=== PATIENT | female | born 1950 | race Caucasian/White ===

== ENCOUNTER 2016-05-22 22:59 | Emergency (ER) | payer MEDICARE, OTHER ==
[~2016-05-22] VITALS: Ht 176.5 cm; Wt 104.4 kg
[~2016-05-22 22:59] MED LIST: ALLO300T2 PO; APIX5TAB PO; ASPI-1085 PO; GLYB5TAB8 PO; IRBE75TA10 PO; METO-277 PO; ONDA-56 PO; OXYC-532 PO; OXYC10TA57 PO; ZOLP10TA6 PO
--- OUTSIDE RECORDS SUMMARY | 2016-05-22 23:04 | XMS REPORT | Continuity of Care Document ---
Author Author [facility] Organization [facility] Address Unknown Phone Unavailable Support Name Relationship Address Phone DARIA GARRISON Caregiver [address] [place] [address] Unavailable REBEKAH ESCOBEDOBrad Dutton DO Caregiver [address] [place] [address] Unavailable GENNA MALLORY Next Of Kin [address] [place] [address] Insurance Providers Guarantor Vidhi Mallory Address [address] [place] [address] Email DENIED/NO TO PT PORTAL Payer Medicare Policy Number [id number] Subscriber's Name Vidhi Mallory Relationship 18 Self Payer [facility], [place] Medicare [facility] Policy Number [id number] Subscriber's Name Genna Mallory Relationship 01 Spouse Chief Complaint and Reason for Visit Chief Complaint Diabetic Problem Reason for Visit Hypoglycemia Problems Active Problems Medical Problem Onset Date Status Dyspnea Unknown Elevated d-dimer Unknown Pyelonephritis Unknown Acute Venous thromboembolism (VTE) confirmed by diagnostic testing Unknown Past Problems Medical Problem Onset Date Hypoglycemia Unknown Saddle pulmonary embolus Unknown Medications Current Home Medications Medication Dose Units Route Directions Days Qty Instructions Start Date Allopurinol 300 Mg Tablet 300 Mg Oral Daily 07/02/15 Apixaban (Eliquis) 5 Mg Tablet 5 Mg Oral Twice A Day 04/23/16 Aspirin (Aspirin Ec) 81 Mg Tablet. 81 Mg Oral Daily 11/08/14 Glyburide 5 Mg Tablet 5 Mg Oral Twice A Day 11/08/14 Irbesartan 75 Mg Tablet 0.5 Tab Oral Daily 07/02/15 Metoprolol Succinate 50 Mg Tab.er.24h 50 Mg Oral Twice A Day Ondansetron Hcl 8 Mg Tablet 8 Mg Oral Three Times A Day as needed for Nausea &/Or Vomiting 04/23/16 Oxycodone Hcl (Oxycontin) 10 Mg Tab.er.12h 10 Mg Oral Every 12 Hours 07/02/15 Oxycodone Hcl/Acetaminophen (Oxycodon-Acetaminophen 7.5-325) 7.5-325 Tablet 1 Tab Oral Twice A Day 04/23/16 Zolpidem Tartrate 10 Mg Tablet 5 Mg Oral Bedtime 11/08/14 Social History Social History Problem Response Recorded Date/Time Onset Date Status Chewing Tobacco Status No 04/23/2016 9:43am Not Applicable Not Applicable Hx Substance Use No 04/23/2016 9:43am Not Applicable Not Applicable Hx Alcohol Use No 04/23/2016 9:43am Not Applicable Not Applicable Tobacco Usage none 11/09/2014 5:49pm Not Applicable Not Applicable Query Response Start Date Stop Date Smoking Status Never smoker Hospital Discharge Instructions No hospital discharge instructions. Plan of Care Discharge Date 04/23/16 12:18pm Disposition 01 DISCHARGED HOME, SELF-CARE Condition at Discharge Improved Instructions/Education Provided Hypoglycemia in a Person with Diabetes (ED) Prescriptions See Medication Section Referrals JOEL HA MD Order Date: 2 Days Address: [address] [place] [address] [phone] Additional Instructions/Education Do not take the glyburide today. Take only 5 mg of glyburide tomorrow. Follow up as directed. Return to the ED if your condition worsens or changes in any manner. Care Plan and Goals Physician Care Plan Problem: Hypoglycemia Goal: Follow up with primary care provider Instructions: Take medications and follow care plan as discussed/written Functional Status No functional status results. Allergies, Adverse Reactions, Alerts Allergen Type Severity Reaction Status Last Updated Sulfa (Sulfonamide Antibiotics) Allergy Unknown Active 07/02/15 Immunizations Query Response on File Recorded Date/Time Hx Influenza Vaccination No 11/08/14 10:13am Hx Influenza Vaccination No 11/08/14 10:13am Influenza Vaccine Hx NO 04/23/16 9:43am Vital Signs Acute Vital Signs Vital Response Date/Time Temperature (Fahrenheit) 98.3 deg F (96.8 - 99.1) 04/23/2016 12:18pm Temperature (Calculated Celsius) 36.24070 degrees C (36.0 - 37.3) 04/23/2016 12:18pm Pulse Rate (adult) 78 bpm (60 - 100) 04/23/2016 12:18pm Respiratory Rate 14 breaths/min (10 - 20) 04/23/2016 12:18pm O2 Sat by Pulse Oximetry 99 % (90 - 100) 04/23/2016 12:18pm Blood Pressure 111/60 mm Hg 04/23/2016 12:18pm Height (Feet) 5 feet 04/23/2016 9:10am Height (Inches) 9.50 inches 04/23/2016 9:10am Weight (Kilograms) 103.600 kg 04/23/2016 9:10am Body Mass Index (BMI) 33.0 04/23/2016 9:10am Results Laboratory Results Test Name Result Units Flags Reference Collection Date/Time Result Date/ Time Comments Phosphorus Level 3.4 MG/DL 2.5-4.5 03/02/2016 UNK 03/02/2016 9:59am Lactate Dehydrogenase 519 U/L 313-618 03/02/2016 UNK 03/02/2016 9:32am Magnesium Level 1.4 MG/DL L 1.6-2.3 03/02/2016 UNK 03/02/2016 9:32am White Blood Count 10.9 T/MM3 4.5-11.0 04/23/2016 9:1204/23/2016 9: 43am Red Blood Count 2.93 M/MM3 L 4.00-5.20 04/23/2016 9:1204/23/2016 9: 43am Hemoglobin 10.4 GM/DL L 12-16 04/23/2016 9:1204/23/2016 9:43am Hematocrit 31.0 % L 36-46 04/23/2016 9:1204/23/2016 9:43am Mean Corpuscular Volume 105.8 UM3 H 80-100 04/23/2016 9:1204/23/2016 9:43am Mean Corpuscular Hemoglobin 35.5 UUG H 26-34 04/23/2016 9:122016 9:43am Mean Corpuscular Hemoglobin Concent 33.5 GM/DL 31-37 04/23/2016 9:1204/23/2016 9:43am RDW Standard Deviation 67.2 FL H 36.9-50.2 04/23/2016 9:1204/23/2016 9:43am Platelet Count 157 T/MM3 130-400 04/23/2016 9:1204/23/2016 9:43am Mean Platelet Volume 9.7 UM3 9.4-12.4 04/23/2016 9:04/23/2016 9: 43am Neutrophils (%) (Auto) 82.4 % H 33-66 04/23/2016 9:04/23/2016 9: 43am Lymphocytes (%) (Auto) 9.2 % L 23-45 04/23/2016 9:04/23/2016 9: 43am Monocytes (%) (Auto) 6.9 % 0-9.0 04/23/2016 9:04/23/2016 9:43am Eosinophils (%) (Auto) 0.0 % 0-4 04/23/2016 9:04/23/2016 9:43am Basophils (%) (Auto) 0.2 % 0-2 04/23/2016 9:04/23/2016 9:43am Immature Granulocyte % (Auto) 1.3 % H 0.0-0.5 04/23/2016 9:2016 9:43am Absolute Neutrophils (auto) 9.0 T/MM3 H 1.8-7.7 04/23/2016 9:2016 9:43am Absolute Lymphocytes (auto) 1.0 T/MM3 1-4.8 04/23/2016 9:2016 9:43am Absolute Monocytes (auto) 0.8 T/MM3 0-0.8 04/23/2016 9:04/23/2016 9:43am Absolute Eosinophils (auto) 0.0 T/MM3 0-0.5 04/23/2016 9:2016 9:43am Absolute Basophils (auto) 0.0 T/MM3 0-0.2 04/23/2016 9:04/23/2016 9:43am Absolute Immature Granulocyte (auto 0.14 T/MM3 H 0.00-0.03 04/23/2016 9: 04/23/2016 9:43am Icterus Index < 2 0-7 04/23/2016 9:04/23/2016 9:49am Chemistry Specimen Hemolysis < 15 0-25 04/23/2016 9:04/23/2016 9 :49am 0-25: Specimen Exhibited No Hemolysis. Turbidity < 20 0-20 04/23/2016 9:04/23/2016 9:49am Sodium Level 137 MEQ/L 134-144 04/23/2016 9:04/23/2016 9:49am Potassium Level 2.9 MEQ/L *L 3.6-5 04/23/2016 9:04/23/2016 10:08am Chloride Level 103 MEQ/L 98-107 04/23/2016 9:04/23/2016 9:49am Carbon Dioxide Level 21 MEQ/L L 22-30 04/23/2016 9:04/23/2016 9: 49am Anion Gap 13 MEQ/L 5-15 04/23/2016 9:04/23/2016 9:49am Blood Urea Nitrogen 18.0 MG/DL H 7-17 04/23/2016 9:04/23/2016 9: 49am Creatinine 1.0 MG/DL 0.7-1.2 04/23/2016 9:04/23/2016 9:49am BUN/Creatinine Ratio 18 RATIO 6-26 04/23/2016 9:04/23/2016 9:49am Glomerular Filtration Rate Calc 56 04/23/2016 9:04/23/2016 9: 49am Glucose Level 160 MG/DL H 65-110 04/23/2016 9:04/23/2016 9:49am Calculated Osmolality 269 MOSM/KG 261-280 04/23/2016 9:04/23/2016 9:49am Calcium Level 8.0 MG/DL L 8.4-10.2 04/23/2016 9:04/23/2016 9:49am Total Bilirubin 0.60 MG/DL 0.20-1.30 04/23/2016 9:04/23/2016 9: 49am Alkaline Phosphatase 119 U/L 38-126 04/23/2016 9:04/23/2016 9: 49am Total Protein 6.3 G/DL 6.3-8.2 04/23/2016 9:04/23/2016 9:49am Albumin 3.8 G/DL 3.5-5.0 04/23/2016 9:04/23/2016 9:49am Globulin 2.5 G/DL 2.4-3.6 04/23/2016 9:1204/23/2016 9:49am Albumin/Globulin Ratio 1.5 RATIO 1.1-2.2 04/23/2016 9:12am 04/23/2016 9 :49am Aspartate Amino Transf (AST/SGOT) 25 U/L 14-36 04/23/2016 9:12am 2016 9:49am Alanine Aminotransferase (ALT/SGPT) 44 U/L 9-52 04/23/2016 9:1204/23 9:49am Troponin I < 0.012 ng/ml 0-0.12 04/23/2016 9:1204/23/2016 10:00am Troponin values with a difference of 55% increase from orginal troponin value represent a true biological DELTA value. (%increase Calc=Orginal Troponin value, divided by subsequent Troponin value, multiplied by 100) Urine Collection Type CLEANCATCH-MIDSTREAM 04/23/2016 10:00am 04/23 10:10am Urine Color YELLOW YELLOW 04/23/2016 10:00am 04/23/2016 10:10am Urine Turbidity SL CLOUDY CLEAR 04/23/2016 10:00am 04/23/2016 10: 10am Urine Specific [place] >=1.030 H 1.015-1.025 04/23/2016 10:00am 2016 10:10am Urine pH 5.0 5.0-8.0 04/23/2016 10:00am 04/23/2016 10:10am Urine Leukocyte Esterase TRACE A NEGATIVE 04/23/2016 10:00am 2016 10:10am Urine Nitrite NEGATIVE NEGATIVE 04/23/2016 10:00am 04/23/2016 10: 10am Urine Protein 1+ A NEGATIVE 04/23/2016 10:00am 04/23/2016 10:10am Urine Glucose (UA) NEGATIVE NEGATIVE 04/23/2016 10:00am 04/23/2016 10 :10am Urine Ketones TRACE A NEGATIVE 04/23/2016 10:00am 04/23/2016 10:10am Urine Urobilinogen 0.2 EU/DL NORMAL 04/23/2016 10:00am 04/23/2016 10: 10am Urine Bilirubin NEGATIVE NEGATIVE 04/23/2016 10:00am 04/23/2016 10: 10am Urine Blood NEGATIVE NEGATIVE 04/23/2016 10:00am 04/23/2016 10:10am Urine WBC 3-5 /HPF 0-5 04/23/2016 10:00am 04/23/2016 10:23am Urine RBC NONE SEEN /HPF 0-3 04/23/2016 10:00am 04/23/2016 10:23am Urine Squamous Epithelial Cells 5-10 04/23/2016 10:00am 04/23/2016 10:23am Urine Transitional Epithelial Cells 3-5 /HPF 04/23/2016 10:00am 04/23 10:23am Urine Bacteria 1+ H NEGATIVE 04/23/2016 10:00am 04/23/2016 10:23am Urine Yeast TRACE H NEGATIVE 04/23/2016 10:00am 04/23/2016 10:23am Urine Hyaline Casts 1-3 /LPF 04/23/2016 10:00am 04/23/2016 10:23am Urine Coarse Granular Casts 1-3 /LPF 04/23/2016 10:00am 04/23/2016 10 :23am Urine Culture Indicated CULT NOT INDICATED 04/23/2016 10:00am 04/23 10:23am Glucometer 149 mg/dL H 65-110 04/23/2016 9:18am 04/23/2016 10:17am Procedures Procedure Status Date Provider(s) Comprehen metabolic panel Completed 03/02/16 Lactate (ld) (ldh) enzyme Completed 03/02/16 Assay of magnesium Completed 03/02/16 Assay of phosphorus Completed 03/02/16 Encounters Encounter Location Arrival/Admit Date Discharge/Depart Date Attending Provider Departed Emergency Room [facility] 04/23/16 9:06am 04/23/16 12: 18pm GALO ESCOEBDO DO Registered Clinic [facility] 03/02/16 9:09am AMELIA PARISI MD Recent Diagnosis
--- OUTSIDE RECORDS SUMMARY | 2016-05-22 23:05 | XMS REPORT | Continuity of Care Document ---
Author Author [facility] Organization [facility] Address Unknown Phone Unavailable Allergies Active Description Code Type Severity Reaction Onset Reported/Identified Relationship to Patient Clinical Status Yes Sulfa (Sulfonamide Antibiotics) Sulfa (Sulfonamide Antibiotics) Drug Allergy Mild HIVES 2015 Medications Problems Date Dx Coded Attending Type Code Diagnosis Diagnosed By 07/02/2015 Luciano Cohen DO E11.9 TYPE 2 DIABETES MELLITUS WITHOUT COMPLICATIONS 07/02/2015 Luciano Cohen DO E78.5 HYPERLIPIDEMIA, UNSPECIFIED 07/02/2015 Luciano Cohen DO I12.9 HYPERTENSIVE CHRONIC KIDNEY DISEASE W STG 1-4/UNSP 07/02/2015 Luciano Cohen DO I26.92 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 07/02/2015 Luciano Cohen DO I82.411 ACUTE EMBOLISM AND THROMBOSIS OF RIGHT FEMORAL VEI 07/02/2015 Luciano Cohen DO I82.432 ACUTE EMBOLISM AND THROMBOSIS OF LEFT POPLITEAL VE 07/02/2015 Luciano Cohen DO J96.01 ACUTE RESPIRATORY FAILURE WITH HYPOXIA 07/02/2015 Luciano Cohen DO K59.00 CONSTIPATION, UNSPECIFIED 07/02/2015 Luciano Cohen DO M10.9 GOUT, UNSPECIFIED 07/02/2015 Luciano Cohen DO N17.9 ACUTE KIDNEY FAILURE, UNSPECIFIED 07/02/2015 Luciano Cohen DO N18.9 CHRONIC KIDNEY DISEASE, UNSPECIFIED 07/02/2015 Luciano Cohen DO R06.02 SHORTNESS OF BREATH 07/02/2015 Luciano Cohen DO 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 07/02/2015 Luciano Cohen DO Z88.2 ALLERGY STATUS TO SULFONAMIDES STATUS Procedures Code Description Performed By Performed On INSERTION OF INTRALUM DEV INTO INF VENA CAVA, JOSELUIS Hayward MD, Justus Pedroza 07/02/2015 Results Test Result Range B-TYPE NATRIURETIC PEPTIDE - 07/02/15 15:51 B-TYPE NATRIURETIC PEPTIDE 185 pg/mL < 100 CBC - 07/02/15 15:56 MEAN CELL HGB 30.5 pg 27.0-33.0 MEAN CELL HGB CONCENTRATION 34.7 g/dL 32.0-37.0 MEAN CELL VOLUME 87.9 fl 80.0-100.0 RED BLOOD CELL 5.14 m/cumm 4.00-6.00 RED CELL DISTRIBUTION WIDTH 14.1 % 11.0- 15.6 WHITE BLOOD CELL 9.5 k/cumm 5.0-10.0 HEMOGLOBIN 15.7 gm/dL 12.0-16.0 HEMATOCRIT 45.2 % 37.0-47.0 PLATELET COUNT 177 k/cumm 150-400 PROTHROMBIN TIME WITH INR - 07/02/15 15:56 INTERNATIONAL NORMAL RATIO 1.0 0.9-1.1 PROTHROMBIN TIME 11.2 sec 9.3-12.2 PARTIAL THROMBOPLASTIN TIME - 07/02/15 15:56 PARTIAL THROMBOPLASTIN TIME 64 sec 23-39 METABOLIC PANEL, COMPREHN - 07/02/15 15:56 POTASSIUM 4.3 mmol/L 3.5-5.3 EST GFR (MDRD) 38 mL/min > 59 ANION GAP 11 mmol/L 5-15 EST CrCl (CG) 55 mL/min > 59 GLUCOSE 155 mg/dL 70-99 CALCIUM 9.1 mg/dL 8.5-10.1 BLOOD UREA NITROGEN 17 mg/dL 7-20 CREATININE 1.4 mg/dL 0.6-1.0 SODIUM 140 mmol/L 135-148 CHLORIDE 107 mmol/L 98-110 AST/SGOT 21 Units/L 10-37 ALT/SGPT 23 Units/L < 66 CARBON DIOXIDE 22 mmol/L 21-32 TOTAL PROTEIN 8.1 gm/dL 6.4-8.2 ALBUMIN 4.0 gm/dL 3.4-5.0 BILI TOTAL 0.9 mg/dL 0.0-1.0 ALKALINE PHOSPHATASE TOTAL 131 IU/L 45- 117 GLUCOSE (POC) - 07/02/15 21:02 GLUCOSE (POC) 200 mg/dL 70-99 PTT HEPARIN PROTOCOLS - 07/02/15 21:42 PARTIAL THROMBOPLASTIN TIME 100 sec 23- 39 CBC - 07/03/15 05:36 MEAN CELL HGB 30.7 pg 27.0-33.0 MEAN CELL HGB CONCENTRATION 34.0 g/dL 32.0-37.0 MEAN CELL VOLUME 90.3 fl 80.0-100.0 RED BLOOD CELL 4.43 m/cumm 4.00-6.00 RED CELL DISTRIBUTION WIDTH 14.3 % 11.0- 15.6 WHITE BLOOD CELL 7.3 k/cumm 5.0-10.0 HEMOGLOBIN 13.6 gm/dL 12.0-16.0 HEMATOCRIT 40.0 % 37.0-47.0 PLATELET COUNT 171 k/cumm 150-400 HEMOGLOBIN A1C - 07/03/15 05:36 HEMOGLOBIN A1C 7.8 % < 5.7 PTT HEPARIN PROTOCOLS - 07/03/15 05:36 PARTIAL THROMBOPLASTIN TIME 84 sec 23-39 RENAL FUNCTION PANEL - 07/03/15 05:36 POTASSIUM 4.4 mmol/L 3.5-5.3 EST GFR (MDRD) 35 mL/min > 59 ANION GAP 12 mmol/L 5-15 EST CrCl (CG) 51 mL/min > 59 GLUCOSE 207 mg/dL 70-99 CALCIUM 8.4 mg/dL 8.5-10.1 BLOOD UREA NITROGEN 18 mg/dL 7-20 CREATININE 1.5 mg/dL 0.6-1.0 SODIUM 139 mmol/L 135-148 CHLORIDE 104 mmol/L 98-110 CARBON DIOXIDE 23 mmol/L 21-32 ALBUMIN 3.3 gm/dL 3.4-5.0 PHOSPHORUS 3.8 mg/dL 2.5-4.9 MAGNESIUM - 07/03/15 05:36 MAGNESIUM 1.8 mg/dL 1.8-2.4 GLUCOSE (POC) - 07/03/15 05:46 GLUCOSE (POC) 206 mg/dL 70-99 GLUCOSE (POC) - 07/03/15 11:01 GLUCOSE (POC) 212 mg/dL 70-99 PTT HEPARIN PROTOCOLS - 07/03/15 11:03 PARTIAL THROMBOPLASTIN TIME 99 sec 23-39 GLUCOSE (POC) - 07/03/15 16:09 GLUCOSE (POC) 191 mg/dL 70-99 PTT HEPARIN PROTOCOLS - 07/03/15 18:00 PARTIAL THROMBOPLASTIN TIME 87 sec 23-39 GLUCOSE (POC) - 07/03/15 20:40 GLUCOSE (POC) 172 mg/dL 70-99 PTT HEPARIN PROTOCOLS - 07/03/15 23:25 PARTIAL THROMBOPLASTIN TIME 66 sec 23-39 PTT HEPARIN PROTOCOLS - 07/04/15 04:41 PARTIAL THROMBOPLASTIN TIME 72 sec 23-39 GLUCOSE (POC) - 07/04/15 06:19 GLUCOSE (POC) 132 mg/dL 70-99 CBC W/DIFF - 07/04/15 10:39 EOSINOPHIL # 0.3 k/cumm 0.1-0.5 EOSINOPHIL % 3 % 2-4 GRANULOCYTE # 6.2 k/cumm 2.0-9.0 GRANULOCYTE % 71 % 50-75 LYMPHOCYTE # 1.7 k/cumm 1.0-4.0 LYMPHOCYTE % 20 % 20-30 MEAN CELL HGB 31.4 pg 27.0-33.0 MEAN CELL HGB CONCENTRATION 34.1 g/dL 32.0-37.0 MEAN CELL VOLUME 92.0 fl 80.0-100.0 MONOCYTE # 0.4 k/cumm 0.1-1.0 MONOCYTE % 5 % 4-6 RED BLOOD CELL 4.24 m/cumm 4.00-6.00 RED CELL DISTRIBUTION WIDTH 14.3 % 11.0- 15.6 WHITE BLOOD CELL 8.7 k/cumm 5.0-10.0 HEMOGLOBIN 13.3 gm/dL 12.0-16.0 HEMATOCRIT 39.0 % 37.0-47.0 PLATELET COUNT 164 k/cumm 150-400 METABOLIC PANEL, COMPREHN - 07/04/15 10:39 POTASSIUM 4.3 mmol/L 3.5-5.3 EST GFR (MDRD) 35 mL/min > 59 ANION GAP 9 mmol/L 5-15 EST CrCl (CG) 52 mL/min > 59 GLUCOSE 194 mg/dL 70-99 CALCIUM 8.3 mg/dL 8.5-10.1 BLOOD UREA NITROGEN 18 mg/dL 7-20 CREATININE 1.5 mg/dL 0.6-1.0 SODIUM 137 mmol/L 135-148 CHLORIDE 104 mmol/L 98-110 AST/SGOT 18 Units/L 10-37 ALT/SGPT 20 Units/L < 66 CARBON DIOXIDE 24 mmol/L 21-32 TOTAL PROTEIN 6.7 gm/dL 6.4-8.2 ALBUMIN 3.3 gm/dL 3.4-5.0 BILI TOTAL 0.6 mg/dL 0.0-1.0 ALKALINE PHOSPHATASE TOTAL 95 IU/L 45- 117 GLUCOSE (POC) - 07/04/15 22:04 GLUCOSE (POC) 183 mg/dL 70-99 PTT HEPARIN PROTOCOLS - 07/05/15 04:32 PARTIAL THROMBOPLASTIN TIME 35 sec 23-39 CBC W/DIFF - 07/05/15 04:33 EOSINOPHIL # 0.4 k/cumm 0.1-0.5 EOSINOPHIL % 5 % 2-4 GRANULOCYTE # 3.6 k/cumm 2.0-9.0 GRANULOCYTE % 51 % 50-75 LYMPHOCYTE # 2.6 k/cumm 1.0-4.0 LYMPHOCYTE % 37 % 20-30 MEAN CELL HGB 30.5 pg 27.0-33.0 MEAN CELL HGB CONCENTRATION 33.4 g/dL 32.0-37.0 MEAN CELL VOLUME 91.3 fl 80.0-100.0 MONOCYTE # 0.5 k/cumm 0.1-1.0 MONOCYTE % 7 % 4-6 RED BLOOD CELL 4.16 m/cumm 4.00-6.00 RED CELL DISTRIBUTION WIDTH 14.2 % 11.0- 15.6 WHITE BLOOD CELL 7.1 k/cumm 5.0-10.0 HEMOGLOBIN 12.7 gm/dL 12.0-16.0 HEMATOCRIT 38.0 % 37.0-47.0 PLATELET COUNT 173 k/cumm 150-400 GLUCOSE (POC) - 07/05/15 05:39 GLUCOSE (POC) 161 mg/dL 70-99 CBC W/DIFF - 07/05/15 09:12 BASOPHIL # 0.0 k/cumm 0.0-0.2 BASOPHIL % 1 % 0-1 EOSINOPHIL # 0.3 k/cumm 0.1-0.5 EOSINOPHIL % 4 % 2-4 GRANULOCYTE # 4.0 k/cumm 2.0-9.0 GRANULOCYTE % 60 % 50-75 LYMPHOCYTE # 1.9 k/cumm 1.0-4.0 LYMPHOCYTE % 29 % 20-30 MEAN CELL HGB 31.0 pg 27.0-33.0 MEAN CELL HGB CONCENTRATION 34.8 g/dL 32.0-37.0 MEAN CELL VOLUME 89.0 fl 80.0-100.0 MONOCYTE # 0.4 k/cumm 0.1-1.0 MONOCYTE % 7 % 4-6 RED BLOOD CELL 4.29 m/cumm 4.00-6.00 RED CELL DISTRIBUTION WIDTH 14.2 % 11.0- 15.6 WHITE BLOOD CELL 6.6 k/cumm 5.0-10.0 HEMOGLOBIN 13.3 gm/dL 12.0-16.0 HEMATOCRIT 38.2 % 37.0-47.0 PLATELET COUNT 168 k/cumm 150-400 METABOLIC PANEL, COMPREHN - 07/05/15 09:53 POTASSIUM 5.0 mmol/L 3.5-5.3 EST GFR (MDRD) 38 mL/min > 59 ANION GAP 8 mmol/L 5-15 EST CrCl (CG) 56 mL/min > 59 GLUCOSE 170 mg/dL 70-99 CALCIUM 8.5 mg/dL 8.5-10.1 BLOOD UREA NITROGEN 21 mg/dL 7-20 CREATININE 1.4 mg/dL 0.6-1.0 SODIUM 139 mmol/L 135-148 CHLORIDE 109 mmol/L 98-110 AST/SGOT 24 Units/L 10-37 ALT/SGPT 24 Units/L < 66 CARBON DIOXIDE 22 mmol/L 21-32 TOTAL PROTEIN 6.6 gm/dL 6.4-8.2 ALBUMIN 3.1 gm/dL 3.4-5.0 BILI TOTAL 0.7 mg/dL 0.0-1.0 ALKALINE PHOSPHATASE TOTAL 95 IU/L 45- 117 GLUCOSE (POC) - 07/05/15 11:04 GLUCOSE (POC) 170 mg/dL 70-99 GLUCOSE (POC) - 07/05/15 17:01 GLUCOSE (POC) 178 mg/dL 70-99 GLUCOSE (POC) - 07/05/15 21:07 GLUCOSE (POC) 202 mg/dL 70-99 GLUCOSE (POC) - 07/06/15 05:51 GLUCOSE (POC) 169 mg/dL 70-99 CBC W/DIFF - 07/06/15 06:11 BASOPHIL # 0.1 k/cumm 0.0-0.2 BASOPHIL % 1 % 0-1 EOSINOPHIL # 0.4 k/cumm 0.1-0.5 EOSINOPHIL % 5 % 2-4 GRANULOCYTE # 4.1 k/cumm 2.0-9.0 GRANULOCYTE % 58 % 50-75 LYMPHOCYTE # 1.8 k/cumm 1.0-4.0 LYMPHOCYTE % 26 % 20-30 MEAN CELL HGB 31.2 pg 27.0-33.0 MEAN CELL HGB CONCENTRATION 34.4 g/dL 32.0-37.0 MEAN CELL VOLUME 90.8 fl 80.0-100.0 MONOCYTE # 0.6 k/cumm 0.1-1.0 MONOCYTE % 9 % 4-6 RED BLOOD CELL 4.23 m/cumm 4.00-6.00 RED CELL DISTRIBUTION WIDTH 14.3 % 11.0- 15.6 WHITE BLOOD CELL 7.1 k/cumm 5.0-10.0 HEMOGLOBIN 13.2 gm/dL 12.0-16.0 HEMATOCRIT 38.4 % 37.0-47.0 PLATELET COUNT 174 k/cumm 150-400 METABOLIC PANEL, COMPREHN - 07/06/15 06:12 POTASSIUM 4.6 mmol/L 3.5-5.3 EST GFR (MDRD) 41 mL/min > 59 ANION GAP 11 mmol/L 5-15 EST CrCl (CG) 60 mL/min > 59 GLUCOSE 143 mg/dL 70-99 CALCIUM 8.1 mg/dL 8.5-10.1 BLOOD UREA NITROGEN 22 mg/dL 7-20 CREATININE 1.3 mg/dL 0.6-1.0 SODIUM 140 mmol/L 135-148 CHLORIDE 107 mmol/L 98-110 AST/SGOT 28 Units/L 10-37 ALT/SGPT 35 Units/L < 66 CARBON DIOXIDE 22 mmol/L 21-32 TOTAL PROTEIN 6.7 gm/dL 6.4-8.2 ALBUMIN 3.2 gm/dL 3.4-5.0 BILI TOTAL 0.6 mg/dL 0.0-1.0 ALKALINE PHOSPHATASE TOTAL 96 IU/L 45- 117 PHOSPHORUS - 07/06/15 06:12 PHOSPHORUS 3.7 mg/dL 2.5-4.9 MAGNESIUM - 07/06/15 06:12 MAGNESIUM 1.7 mg/dL 1.8-2.4 GLUCOSE (POC) - 07/06/15 11:37 GLUCOSE (POC) 191 mg/dL 70-99 Encounters ACCT No. Visit Date/Time Discharge Status Pt. Type Provider Facility Loc./Unit Complaint [id number] 03/25/2016 09:28:00 2016 07:57:00 DIS Outpatient Odell BYRD, [facility] W.RAT [id number] 07/02/2015 14:38:00 2015 14:12:00 [facility] [id number] 12/18/2015 14:30:00 PEN Preadmit Aly BYRD, Jacqueline RAMIRES ALERT [facility] ZENY
[2016-05-22 23:14] VITALS: Ht 176.5 cm; Wt 104.4 kg
[2016-05-22] MEDS ORDERED: NORMAL SALINE 1,000 ML IV ONE (23:35)
--- NOTE | 2016-05-22 23:42 | NUR ---
IMAGING PT TO IMAGING VIA CART
--- NOTE | 2016-05-22 23:58 | NUR ---
IMAGING PT RETURN FROM IMAGING VIA CART
--- NOTE | 2016-05-23 00:05 | ERPDOC ---
Departure Disposition Decision Date: May 23, 2016 Disposition Decision Time: 01:55 Disposition: 01 DISCHARGED HOME, SELF-CARE Impression Impression Impression: Primary Impression: BPPV (benign paroxysmal positional vertigo) Laterality: right Qualified Codes: H81.11 - Benign paroxysmal vertigo, right ear Additional Impression: Nausea Severity: Moderate Condition: Improved Seen By: Physician only Referrals: JOEL HA MD (Family) 3 Days Patient Instructions: Benign Paroxysmal Positional Vertigo (ED) Problems/Meds/Labs Reviewed?: Yes Medications reviewed and manag: Yes Additional Instructions: You have benign positional vertigo. Follow up with your doctor for referral to ENT. Since benadryl and zofran helped with your nausea, use these medications to help at home. Be aware that movement may cause your symptoms to come back. Follow up care ordered?: Yes Mental Status: Alert, Oriented Scripts Ondansetron (Zofran Odt) 4 Mg Tab.rapdis 4 MG PO QID Y for NAUSEA &/OR VOMITING, #40 TAB 0 Refills Prov: JUNEEDGAR DO 05/23/16 HPI - CVA/Neuro General Chief Complaint: Dizzy Stated Complaint: FEELS LIKE GOING TO PASS OUT Time Seen by Provider: 23:21 Source: patient, family Exam Limitations: no limitations HPI - CVA/NEURO Initial Comments 65yo woman presents to the ER tonight with dizziness. Pt has had dizziness since this AM; associated with nausea. Pt's last chemo was 3 weeks ago; has not had any sx like this before. 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 Pt has had other complications related to the chemo including a saddle embolus and b/l DVT's with placement of a [place] filter. Occurred At: home Onset/Timing: Rapid Duration: 6-12 hrs Severity: moderate Associated Symptoms: nausea/vomiting Hx of Similar Symptoms: No Modifying Factors: Rest Allergies: Coded Allergies: Sulfa (Sulfonamide Antibiotics) (Verified Allergy, Unknown, 07/02/15) Past History Patient Medical History (1) Breast cancer (2) Pulmonary embolism Past Medical History Metabolic: diabetes, gout, hypertension Female: kidney stones, renal insufficiency Hematologic: DVT Surgical History General: tonsils Vaccines Hx Influenza Vaccination: No Social History Substance Use Type: does not use Alcohol Intake: none Review of Systems GI Upper Abdomen: nausea Neurological General: vertigo All other Systems All Other Systems: Reviewed and Negative Physical Exam General General Nourishment: well nourished, well developed, appears stated age, no acute distress, adult, obese General Body Habitus: well groomed Vitals and Pain First Documented Vital Signs Date Time Temp Pulse Resp B/P Pulse Ox O2 Delivery O2 Flow Rate FiO2 05/22/16 23:14 97.8 73 16 192/96 97 Room Air Weight: Kilograms: 104.400 Height (feet): 5 Height (inches): 9.50 Triage Pain Scale: RN VS reviewed by Provider: Yes Normal Exams: Head: Normocephalic w/o trauma Eyes: Pupils are PERRLA w/ EOMI, No scleral icterus, irritation ENMT: No facial trauma, nasal exudates, pharyngeal erythema Neck: Full range of motion, without adenopathy, JVD Lymphatic: No lymphadenopathy Musculoskeletal: No tenderness, or deformity noted Integumentary: No rashes, hives, or bruising noted Neurologic: Patient is alert, and oriented Psychiatric: Patient exhibits, appropriate attention Respiratory (brief) Respiratory: FOUND: clear all nation, equal bilaterally, symmetrical, NOT FOUND : rales, wheezes Cardiovascular (brief) Cardiac: FOUND: regular rate, regular rhythm, NOT FOUND: click, gallop, murmur , pedal edema, peripheral edema, rub Capillary Refill: <2 sec Pulses: all distal extremities, equal, strong Abdomen (brief) Abdominal Brief: FOUND: bowel normo active x4, soft, NOT FOUND: distended, hepatosplenomegaly, pulsatile mass, tender Differential Diagnoses Considering: Thrombotic CVA, Hemorrhagic CVA, Encephalitis, Medication Effect, TIA, Other (Metastases) Progress Results/Orders Orders Procedure Category Date Status Time Ct Head W/O Contrast CT 05/22/16 Taken 23:31 Oxygen Administration EDM 05/22/16 Transmitted 23:35 Iv Lock (Ed Only) EDM 05/22/16 Transmitted 23:35 Bgm (Ed) EDM 05/22/16 Transmitted 23:35 Nothing By Mouth (Ed EDM 05/22/16 Transmitted Only) 23:35 Cbc W/Auto LAB 05/22/16 Complete Diff-Reflex Manual 23:35 Cmp - Comprehensive LAB 05/22/16 Complete Metabolic 23:35 Troponin I W LAB 05/22/16 Complete Hemolysis Index 23:35 INR LAB 05/22/16 Complete 23:35 PTT LAB 05/22/16 Complete 23:35 EKG EKG 05/22/16 Taken 23:35 Normal Saline (Normal PHA 05/22/16 Complete Saline Iv) 23:35 Elevate Hob ABBE 05/22/16 Complete 23:35 Measure Vital Signs ABBE 05/22/16 Complete 23:35 Chest 1 View RAD 05/23/16 Taken 00:10 Meclizine (Antivert PHA 05/23/16 Complete 25 Mg) 00:15 Diphenhydramine PHA 05/23/16 Complete (Benadryl) 00:45 Ondansetron Inj PHA 05/23/16 Complete (Zofran) 00:45 Heparin Flush PHA 05/23/16 Complete (Heparin Flush) 02:15 Lab Results Laboratory Tests Test 05/23/16 00:16 White Blood Count 5.3T/MM3 Red Blood Count 3.23M/MM3 Hemoglobin 11.3GM/DL Hematocrit 34.7% Mean Corpuscular Volume 107.4UM3 Mean Corpuscular Hemoglobin 35.0UUG Mean Corpuscular Hemoglobin Concent 32.6GM/DL RDW Standard Deviation 56.1FL Platelet Count 262T/MM3 Mean Platelet Volume 9.0UM3 Immature Granulocyte % (Auto) 0.0% Neutrophils (%) (Auto) 47.6% Lymphocytes (%) (Auto) 36.7% Monocytes (%) (Auto) 6.8% Eosinophils (%) (Auto) 8.3% Basophils (%) (Auto) 0.6% Absolute Immature Granulocyte (auto 0.00T/MM3 Absolute Neutrophils (auto) 2.5T/MM3 Absolute Lymphocytes (auto) 1.9T/MM3 Absolute Monocytes (auto) 0.4T/MM3 Absolute Eosinophils (auto) 0.4T/MM3 Absolute Basophils (auto) 0.0T/MM3 Prothromb Time International Ratio 1.13 Activated Partial Thromboplast Time 37.7SEC Turbidity < 20 Sodium Level 144MEQ/L Potassium Level 3.8MEQ/L Chloride Level 103MEQ/L Carbon Dioxide Level 26MEQ/L Anion Gap 15MEQ/L Blood Urea Nitrogen 14.0MG/DL Creatinine 0.9MG/DL Glomerular Filtration Rate Calc 63 BUN/Creatinine Ratio 16RATIO Glucose Level 188MG/DL Calculated Osmolality 283MOSM/KG Calcium Level 9.0MG/DL Total Bilirubin 0.70MG/DL Icterus Index < 2 Aspartate Amino Transf (AST/SGOT) 17U/L Alanine Aminotransferase (ALT/SGPT) 24U/L Alkaline Phosphatase 116U/L Troponin I < 0.012ng/ml Total Protein 6.8G/DL Albumin 3.9G/DL Globulin 2.9G/DL Albumin/Globulin Ratio 1.3RATIO Chemistry Specimen Hemolysis < 15 Medications Current ED Medications Sodium Chloride (Normal Saline IV) 1,000 ml @ 125 mls/hr Q8H ONCE IV Last administered on 05/23/16 00:17; Start 05/22/16 at 23:35; Stop 05/23/16 at 02:59 ; Status DC Meclizine HCl (Antivert 25 Mg) 25 mg O ONCE PO Last administered on 05/23/16 00:19; Start 05/23/16 at 00:15; Stop 05/23/16 at 00:16; Status DC Diphenhydramine HCl (Benadryl) 50 mg O ONCE IV Last administered on 05/23/16 00:47; Start 05/23/16 at 00:45; Stop 05/23/16 at 00:46; Status DC Ondansetron HCl (Zofran) 4 mg O ONCE IV Last administered on 05/23/16 00:46; Start 05/23/16 at 00:45; Stop 05/23/16 at 00:46; Status DC Heparin Sodium (Porcine) (Heparin Flush) 500 unit O ONCE IV Last administered on 05/23/16 02:07; Start 05/23/16 at 02:15; Stop 05/23/16 at 02:17; Status DC Progress Progress Improved nausea with benadryl and zofran. Nurse noted that pts sx worsened acutely with positioning. Ben[place]-Hallpike maneuver was then found to be pos on Right. Will give pt information on Jesus maneuver and refer to ENT. Pt voiced understanding of dx, prognosis, and tx. EKG EKG : Rate: 60-100 Rhythm: sinus Castana: normal QRS: normal Intervals: normal ST/T: normal Subtle Signs Low voltage Interpreted by: signing physician Xray Xray : Xray: CXR Portable Interpretation: Normal, Interpreted by Sd CT CT : CT: Head no contrast Interpretation: Abnormal (Age related changes), Reviewed Written Report EDGAR VILLA DO May 23, 2016 00:04
--- OUTSIDE RECORDS SUMMARY | 2016-05-23 00:08 | XMS REPORT | Continuity of Care Document ---
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 Type Provider Facility Loc./Unit Complaint [id number] 03/25/2016 09:28:00 2016 07:57:00 DIS Outpatient Odell BYRD, [facility] W.RAT [id number] 07/02/2015 14:38:00 2015 14:12:00 [facility] [id number] 12/18/2015 14:30:00 PEN Preadmit Aly BYRD, Jacqueline RAMIRES ALERT [facility] ZENY
[2016-05-23] MEDS ORDERED: MECLIZINE 25 MG TABLET PO ONE (00:15)
[2016-05-23 00:36] LABS: ALBUMIN 3.9 G/DL (3.5-5.0); ALBUMIN/GLOBULIN RATIO 1.3 RATIO (1.1-2.2); ALKALINE PHOSPHATASE 116 U/L (38-126); ALT (SGPT) 24 U/L (9-52); ANION GAP 15 MEQ/L (5-15); AST (SGOT) 17 U/L (14-36); BUN/CREATININE RATIO 16 RATIO (6-26); CHLORIDE 103 MEQ/L (98-107); CO2 - CARBON DIOXIDE 26 MEQ/L (22-30); CREATININE 0.9 MG/DL (0.7-1.2); GLOMERULAR FILTRATION RATE 63; GLUCOSE 188 MG/DL (65-110); POTASSIUM 3.8 MEQ/L (3.6-5); SODIUM 144 MEQ/L (134-144); TOTAL PROTEIN 6.8 G/DL (6.3-8.2)
[2016-05-23 00:45] LABS: BASOPHILS % (AUTO) 0.6 % (0-2); EOSINOPHILS # (AUTO) 0.4 T/MM3 (0-0.5); EOSINOPHILS % (AUTO) 8.3 % (0-4); HCT - HEMATOCRIT 34.7 % (36-46); HGB - HEMOGLOBIN 11.3 GM/DL (12-16); LYMPHOCYTES # (AUTO) 1.9 T/MM3 (1-4.8); LYMPHOCYTES % (AUTO) 36.7 % (23-45); MEAN CORPUSCULAR HGB CONC(MCHC 32.6 GM/DL (31-37); MEAN CORPUSCULAR VOLUME 107.4 UM3 (80-100); MONOCYTES # (AUTO) 0.4 T/MM3 (0-0.8); MONOCYTES % (AUTO) 6.8 % (0-9.0); NEUTROPHILS #(AUTO)-ABSOLUTE 2.5 T/MM3 (1.8-7.7); NEUTROPHILS % (AUTO) 47.6 % (33-66); RED BLOOD COUNT 3.23 M/MM3 (4.00-5.20); WBC - WHITE BLOOD COUNT 5.3 T/MM3 (4.5-11.0)
[2016-05-23] MEDS ORDERED: DiphenhydrAMINE 50 MG/ML INJECTION IV ONE (00:45)
[2016-05-23] MEDS ORDERED: ONDANSETRON 4mg/2ml INJECTION IV ONE (00:45)
[2016-05-23 00:46] LABS: INR 1.13 (0.76-1.04); PROTHROMBIN TIME 12.3 SEC (9.31-12.49); PTT 37.7 SEC (24-36)
--- NOTE | 2016-05-23 01:17 | NUR ---
STATUS PT REPORTS IMPROVEMENT IN NAUSEA; HOWEVER, STILL REPORTS OCCASSIONAL DIZZINESS. PROVIDER NOTIFIED.
[2016-05-23] MEDS ORDERED: ONDA4TAB7 PO (01:57)
[2016-05-23 02:15] VITALS: BP 157/76; PULSE 64; RESP 16; TEMP 97.8; O2SAT 96
--- NOTE | 2016-05-23 02:15 | NUR ---
DEPART PT GIVEN DI FOR BENIGN PAROXYSMAL POSITIONAL VERTIGO, VALERIE, F/U. RX PROVIDED FOR VERTIGO. PT VERBALIZES UNDERSTANDING OF ALL DI. QUESTIONS ASKED/ANSWERED - DENIES FURTHER QUESTIONS/NEEDS AT THIS TIME. PAC HEP LOCKED AND DEACCESSED. PT INDEPENDENTLY TRANSFERRED FROM CAR TO WHEEL CHAIR TO PRIVATE VEHICLE PASSENGER SIDE. NO SIGN OF DISTRESS AT THIS TIME.
--- NOTE | 2016-05-23 07:56 | DI ---
Indication: ITS.REASON: Dizziness PROCEDURE: CHEST 1 VIEW: Encounter: Initial Comparison: April 23, 2016 Findings: The lungs are stable in appearance without new focal airspace consolidation. There is no pleural effusion or pneumothorax. The heart size, pulmonary vascularity and mediastinal contours are unchanged. Right IJ port. IMPRESSION: Stable appearance of the chest without acute cardiopulmonary disease. .
--- NOTE | 2016-05-23 08:07 | DI ---
Indication: ITS.REASON: BC, dizziness PROCEDURE: CT HEAD W/O CONTRAST: Encounter: Initial Comparison: None Technique: Axial CT images through the head were performed without contrast. Iterative Reconstruction dose reducing technique was utilized. FINDINGS: The ventricles are of normal size, shape, and contour for the patient's age. There are scattered areas of low attenuation in the white matter which most likely represent changes from chronic microvascular ischemia. The brainstem, cerebellum, and cerebral hemispheres otherwise have a normal morphology and CT attenuation. There is no evidence of midline displacement. No hemorrhage, signs of acute territorial stroke, mass effect, mass lesions, or edema is evident. The visualized portions of the skull base, midface, and calvarium demonstrate no abnormality. Air-fluid level with high-density secretions in the left maxillary sinus which is nearly completely opacified. The tympanic and mastoid cavities appear normal. IMPRESSION: No acute intracranial abnormality or hemorrhage. Acute left maxillary sinusitis. There is a preliminary report by [employer] radiologic. .
== END 2016-05-23 02:15 | disposition home or self-care (01) ==
LOC: ED 22:59
DX: H81.11 Benign paroxysmal vertigo, right ear (principal); R11.0 Nausea; Z86.718 Personal history of other venous thrombosis and embolism; Z79.01 Long term (current) use of anticoagulants
CPT/HCPCS: 70450; 71010; 80053; 84484; 85025; 85610; 85730; 93005; 96361; 96374; 96375; 99284; A9270; J1200; J1642; J2405; J7030